=== PATIENT | male | born 1935 | race Caucasian/White ===

== ENCOUNTER 2017-06-25 09:11 | Emergency (ER) | payer MEDICARE ==
[~2017-06-25] VITALS: Ht 170.1 cm; Wt 68.0 kg
[2017-06-25 09:19] VITALS: BP 147/57
== END 2017-06-25 11:13 | disposition home or self-care (01) ==
LOC: ED 09:11
DX: S61.412A Laceration without foreign body of left hand, initial encounter (principal); S61.411A Laceration without foreign body of right hand, initial encounter; S00.81XA Abrasion of other part of head, initial encounter; S09.90XA Unspecified injury of head, initial encounter; R03.0 Elevated blood-pressure reading, without diagnosis of hypertension; Z95.1 Presence of aortocoronary bypass graft; W18.09XA Striking against other object with subsequent fall, initial encounter; Y93.89 Activity, other specified; Y92.511 Restaurant or cafe as the place of occurrence of the external cause; Y99.9 Unspecified external cause status

== ENCOUNTER 2018-01-01 12:50 | Inpatient (IN) | payer MEDICARE ==
[~2018-01-01] VITALS: Ht 170.1 cm; Wt 63.1 kg
--- NOTE | ~2018-01-01 | PR ---
[place], [place] PROGRESS NOTE NAME: SAVITA PATEL [facility] #: [id number] UNIT #: [id number] ROOM: [facility] DOCTOR: LELO CASTAÑEDA,MADHAVRODRIGUEZ BIRTHDATE: [birth year] DOS: 01/02/2018 REASON FOR VISIT: The patient with dyspnea, near syncope and coronary artery disease. SUBJECTIVE: The patient is feeling better. He wanted to go home. Denies any chest pain, shortness of breath. No palpitation. No dizziness. No PND or orthopnea. His is at bedside. REVIEW OF SYSTEMS: Review of the 8 systems negative except as mentioned above. RHYTHM STRIPS: The patient was in paced rhythm with AV sequential pacing on the monitor. PHYSICAL EXAMINATION: VITAL SIGNS: Blood pressure 100/51, pulse 73, respiratory rate was 16, weight 63.1 kilos. GENERAL: Alert, comfortable, in no acute distress. HEENT: Pupils round, equal. No jaundice. Tongue was moist and pharynx was clear. NECK: Supple. No distended neck veins. No carotid bruit. CHEST: Symmetrical, nontender. LUNGS: Clear to auscultation bilaterally. HEART: Regular rhythm. No S3. No palpable thrills. Grade 1/1-2/6 systolic murmur. ABDOMEN: Benign, nontender. Bowel sounds normal. EXTREMITIES: Showed no edema. Distal pulses palpable. SKIN: Warm and dry. No cyanosis. No clubbing. NEUROLOGIC: The patient is alert, oriented. No focal neurologic deficit. MEDICATIONS: Reviewed. ALLERGIES: Reviewed. IMPRESSION: 1. Near syncope, possibly due to low blood pressure. 2. Borderline low blood pressure, discontinue his spironolactone for now and monitor his blood pressures. 3. Coronary artery disease, status post bypass surgery. The patient was not on any beta blockers or ANTONIO inhibitors due to "low blood pressure and chronic kidney disease." 4. Positive ischemic cardiomyopathy, status post implantable cardioverter-defibrillator. The patient was on amiodarone. No beta blockers or ANTONIO or ARBs due to his low blood pressure and chronic kidney disease. 5. Peripheral vascular disease, status post recent abdominal aortic aneurysm stent graft repair in first week of December, stable. CT abdomen showed no graft leak. 6. Anemia. 7. Chronic kidney disease. [place], [place] PROGRESS NOTE NAME: SAVITA PATEL UNIT #: [id number] ROOM: [facility] DOCTOR: LELO CASTAÑEDA,CIARAN BIRTHDATE: [birth year] RECOMMENDATIONS: 1. He appears to be stable from a cardiac standpoint. 2. He would like to go home today. 3. His heart rates are stable and discontinue his spironolactone due to borderline low blood pressure. 4. Advised to follow with family doctor next week for follow up of his CBC and also followup by his mushroom farmer, Dr. Barrow in a couple of weeks. CIARAN LIND MD CM:PNTRANS 29 [id number] CIARAN LIND MD 01/02/181812 interface
--- NOTE | ~2018-01-01 | EKG ---
[place], [place] ELECTROCARDIOGRAM REPORT NAME: SAVITA PATEL UNIT #: [id number] ROOM: [facility] DOCTOR: LELO CASTAÑEDA,CIARAN BIRTHDATE: [birth year] DOS: 01/01/2018 TIME: 1326. IMPRESSION: 1. Ventricular pacing. 2. Possible atrial pacing. 3. Baseline artifacts. CIARAN LIND MD CM:EKGRPT:ELECTROCARDIOGRAM REPORT [id number] CIARAN LIND MD
[2018-01-01 12:57] VITALS: BP 151/56
[2018-01-01 13:00] VITALS: BP 151/56
[2018-01-01 14:09] LABS: BASO % 0.3 % (0.0-1.0); EOS % 1.1 % (1.0-4.0); HEMATOCRIT 33.4 % (42.0-52.0); HEMOGLOBIN 10.4 g/dl (14.0-18.0); LYMPH # 0.5 10*3/uL (1.3-4.4); LYMPH % 13.5 % (27.0-41.0); MEAN CELL VOLUME 89.3 fl (80.0-94.0); MEAN CORPUSCULAR HGB 27.8 pg (27.0-31.0); MEAN CORPUSCULAR HGB CONC 31.1 g/dl (33.0-37.0); MONO # 0.4 10*3/uL (0.1-1.0); MONO % 12.1 % (3.0-9.0); NEUT # 2.6 10*3/uL (2.3-7.9); NEUT % 72.7 % (47.0-73.0); PLATELET COUNT AUTOMATED 50 10*3/uL (130-400); RED BLOOD COUNT 3.74 10*6/uL (4.50-5.90); WHITE BLOOD COUNT 3.6 10*3/uL (4.8-10.8)
[2018-01-01 14:15] LABS: ACT PARTIAL THROMBO TIME 31.5 SECONDS (20.8-31.5); INTERNATIONAL NORM RATIO 2.2 (2.0-3.5)
[2018-01-01 14:23] LABS: ALBUMIN 2.9 gm/dl (3.1-4.5); CREATININE 1.78 mg/dL (0.70-1.30); POTASSIUM 4.2 mmol/L (3.5-5.1); TOTAL PROTEIN 7.6 gm/dL (6.4-8.2); TROPONIN I 0.015 ng/ml (<0.045)
[2018-01-01 15:15] VITALS: BP 132/56
[2018-01-01 16:07] VITALS: BP 135/54
[2018-01-01] MEDS ORDERED: OMEPRAZOLE40 MG PO (17:17)
[2018-01-01] MEDS ORDERED: LEVOTHYROXINE50 MCG PO (17:17)
[2018-01-01] MEDS ORDERED: AMIODARONE HYD200 MG PO (17:18)
[2018-01-01] MEDS ORDERED: WARFARIN SOD5 MG PO (17:18)
[2018-01-01] MEDS ORDERED: SPIRONOLACTONE25 MG PO (17:19)
[2018-01-01] MEDS ORDERED: DULCOLAX STOOL100 MG PO (17:20)
[2018-01-01] MEDS ORDERED: FUROSEMIDE40 MG PO (17:21)
[2018-01-01] MEDS ORDERED: ULTRAM50 MG PO (17:21)
[2018-01-01] MEDS ORDERED: LANOXIN0.125 MG PO ×2 (17:34→17:37)
[2018-01-01] MEDS ORDERED: IRON325 M3 PO (17:38)
[2018-01-01] MEDS ORDERED: COUMADIN5 M2 PO (17:41)
[2018-01-01 18:54] LABS: BILIRUBIN NEGATIVE (NEGATIVE); BLOOD 3+ (NEGATIVE); CLARITY CLOUDY (CLEAR); COLOR YELLOW (YELLOW); GLUCOSE NEGATIVE (NEGATIVE); KETONE NEGATIVE (NEGATIVE); LEUKO ESTERASE 2+ (NEGATIVE); NITRITE NEGATIVE (NEGATIVE); SPECIFIC GRAVITY 1.015 (1.005-1.030)
[2018-01-01 18:59] LABS: BACTERIA 4+; EPITHELIAL CELLS 0-2; MUCOUS TRACE; RBC TNTC rbc/hpf (0-2); WBC TNTC wbc/hpf (0-5)
[2018-01-01 20:00] VITALS: BP 118/40
[2018-01-02] VITALS: BP 114/35
[2018-01-02 04:00] VITALS: BP 120/51
[2018-01-02 05:11] LABS: HEMATOCRIT 27.7 % (42.0-52.0); HEMOGLOBIN 8.7 g/dl (14.0-18.0); MEAN CELL VOLUME 88.8 fl (80.0-94.0); MEAN CORPUSCULAR HGB 27.9 pg (27.0-31.0); MEAN CORPUSCULAR HGB CONC 31.4 g/dl (33.0-37.0); MEAN PLATELET VOLUME 12.7 fl (9.6-12.3); PLATELET COUNT AUTOMATED 43 10*3/uL (130-400); RED BLOOD COUNT 3.12 10*6/uL (4.50-5.90); RED CELL DISTRI WIDTH 16.2 % (0-14.5); WHITE BLOOD COUNT 2.9 10*3/uL (4.8-10.8)
[2018-01-02 05:35] LABS: ALBUMIN 2.3 gm/dl (3.1-4.5); CREATININE 1.49 mg/dL (0.70-1.30); FREE T4 1.44 ng/dl (0.76-1.46); POTASSIUM 4.2 mmol/L (3.5-5.1); TOTAL PROTEIN 6.1 gm/dL (6.4-8.2)
[2018-01-02 05:37] LABS: BASOPHILS 1 % (0-1); SCHISTOCYTES FEW; TOTAL CELLS COUNTED 100 #CELLS
[2018-01-02 05:38] LABS: PLATELET SUFFICIENCY LOW (NORMAL)
[2018-01-02 05:39] LABS: THYROID STIM HORMONE (HS) 3.17 uIU/ml (0.358-4.75)
[2018-01-02 06:08] LABS: ACT PARTIAL THROMBO TIME 32.6 SECONDS (20.8-31.5)
[2018-01-02 07:34] LABS: VITAMIN D, 25-HYDROXY 36.6 ng/mL (30-100)
[2018-01-02 08:00] VITALS: BP 108/60
[2018-01-02 12:00] VITALS: BP 100/51
== END 2018-01-02 13:48 | disposition home or self-care (01) | DRG 378 ==
LOC: ED 12:50 → EDHOLD 15:09 → 5E 15:37 → ICCU 16:16
PROVIDERS: Emergency Medicine; Internal Medicine
DX: K92.2 Gastrointestinal hemorrhage, unspecified (principal); D68.59 Other primary thrombophilia; D68.9 Coagulation defect, unspecified; I48.0 Paroxysmal atrial fibrillation; I95.9 Hypotension, unspecified; R06.09 Other forms of dyspnea; E83.41 Hypermagnesemia; D64.9 Anemia, unspecified; R55 Syncope and collapse; D72.810 Lymphocytopenia; R74.0 Nonspecific elevation of levels of transaminase and lactic acid dehydrogenase [LDH]; R74.8 Abnormal levels of other serum enzymes; K21.9 Gastro-esophageal reflux disease without esophagitis; E03.8 Other specified hypothyroidism; E06.3 Autoimmune thyroiditis; N40.0 Benign prostatic hyperplasia without lower urinary tract symptoms; M10.9 Gout, unspecified; W18.39XA Other fall on same level, initial encounter; I25.10 Atherosclerotic heart disease of native coronary artery without angina pectoris; N18.9 Chronic kidney disease, unspecified; I12.9 Hypertensive chronic kidney disease with stage 1 through stage 4 chronic kidney disease, or unspecified chronic kidney disease; I25.5 Ischemic cardiomyopathy; I73.9 Peripheral vascular disease, unspecified; Z95.1 Presence of aortocoronary bypass graft; Z95.810 Presence of automatic (implantable) cardiac defibrillator; Z86.79 Personal history of other diseases of the circulatory system; Z87.891 Personal history of nicotine dependence; Y99.8 Other external cause status; I25.2 Old myocardial infarction; Z79.01 Long term (current) use of anticoagulants; Z82.49 Family history of ischemic heart disease and other diseases of the circulatory system; Y93.89 Activity, other specified; Y92.89 Other specified places as the place of occurrence of the external cause

== ENCOUNTER 2018-02-20 12:20 | Inpatient (IN) | payer MEDICARE ==
[~2018-02-20] VITALS: Ht 163 cm; Wt 61.0 kg
[2018-02-20] VITALS (7 sets, daily range): BP systolic 103–129; BP diastolic 44–71
[~2018-02-20 12:20] MED LIST: AMIODARONE HYD200 MG PO; COUMADIN5 M2 PO; DULCOLAX STOOL100 MG PO; FUROSEMIDE40 MG PO; IRON325 M3 PO; LANOXIN0.125 MG PO; LEVOTHYROXINE50 MCG PO; OMEPRAZOLE40 MG PO; SPIRONOLACTONE25 MG PO; ULTRAM50 MG PO; WARFARIN SOD5 MG PO
[2018-02-20 13:19] LABS: HEMATOCRIT 33.1 % (42.0-52.0); HEMOGLOBIN 10.5 g/dl (14.0-18.0); MEAN CELL VOLUME 93.8 fl (80.0-94.0); MEAN CORPUSCULAR HGB 29.7 pg (27.0-31.0); MEAN CORPUSCULAR HGB CONC 31.7 g/dl (33.0-37.0); MEAN PLATELET VOLUME 10.9 fl (9.6-12.3); PLATELET COUNT AUTOMATED 46 10*3/uL (130-400); RED BLOOD COUNT 3.53 10*6/uL (4.50-5.90); RED CELL DISTRI WIDTH 19.9 % (0-14.5); WHITE BLOOD COUNT 4.1 10*3/uL (4.8-10.8)
[2018-02-20 13:26] LABS: ACT PARTIAL THROMBO TIME 32.7 SECONDS (20.8-31.5); INTERNATIONAL NORM RATIO 2.8 (2.0-3.5)
[2018-02-20 13:33] LABS: ALBUMIN 2.5 gm/dl (3.1-4.5); CREATININE 1.77 mg/dL (0.70-1.30); POTASSIUM 3.9 mmol/L (3.5-5.1); TOTAL PROTEIN 6.4 gm/dL (6.4-8.2)
[2018-02-20 13:35] LABS: OVALOCYTES FEW; PLATELET SUFFICIENCY LOW (NORMAL); TOTAL CELLS COUNTED 100 #CELLS
[2018-02-20 13:40] LABS: TROPONIN I 0.051 ng/ml (<0.045)
[2018-02-20 13:53] LABS: DIGOXIN 0.46 ng/ml (0.8-2.0)
[2018-02-20 20:01] LABS: BILIRUBIN NEGATIVE (NEGATIVE); BLOOD 3+ (NEGATIVE); CLARITY SL CLOUDY (CLEAR); COLOR YELLOW (YELLOW); GLUCOSE NEGATIVE (NEGATIVE); KETONE NEGATIVE (NEGATIVE); LEUKO ESTERASE 1+ (NEGATIVE); NITRITE NEGATIVE (NEGATIVE); PH 5.5 (5.0-9.0); SPECIFIC GRAVITY 1.015 (1.005-1.030)
[2018-02-20 20:07] LABS: RBC TNTC rbc/hpf (0-2)
[2018-02-21] VITALS: BP 122/44
[2018-02-21 06:20] LABS: HEMATOCRIT 28.5 % (42.0-52.0); HEMOGLOBIN 9.2 g/dl (14.0-18.0); MEAN CELL VOLUME 91.9 fl (80.0-94.0); MEAN CORPUSCULAR HGB 29.7 pg (27.0-31.0); MEAN CORPUSCULAR HGB CONC 32.3 g/dl (33.0-37.0); PLATELET COUNT AUTOMATED 38 10*3/uL (130-400); RED CELL DISTRI WIDTH 19.6 % (0-14.5); WHITE BLOOD COUNT 3.7 10*3/uL (4.8-10.8)
[2018-02-21 06:30] LABS: ALBUMIN 2.4 gm/dl (3.1-4.5); CREATININE 1.43 mg/dL (0.70-1.30); PHOSPHOROUS 2.3 mg/dL (2.5-4.9); POTASSIUM 3.9 mmol/L (3.5-5.1)
[2018-02-21 06:33] LABS: TOTAL PROTEIN 5.6 gm/dL (6.4-8.2)
[2018-02-21 06:45] LABS: OVALOCYTES FEW; PLATELET SUFFICIENCY LOW (NORMAL); POLYCHROMASIA SLIGHT; TOTAL CELLS COUNTED 100 #CELLS
[2018-02-21 07:01] LABS: INTERNATIONAL NORM RATIO 2.8 (2.0-3.5)
[2018-02-21 08:00] VITALS: BP 125/58
[2018-02-21 12:00] VITALS: BP 139/50
[2018-02-21] MEDS ORDERED: VITAMIN D31000 UNIT PO (12:02)
[2018-02-21] MEDS ORDERED: PROAIR HFA8.5 GM INH (12:03)
[2018-02-21] MEDS ORDERED: VITAMIN C1000 M5 PO (12:06)
[2018-02-21 16:01] VITALS: BP 101/31
[2018-02-21 20:00] VITALS: BP 102/40
[2018-02-21 21:30] VITALS: BP 126/56
[2018-02-22] VITALS: BP 118/42
[2018-02-22 06:55] LABS: HEMATOCRIT 29.6 % (42.0-52.0); HEMOGLOBIN 9.5 g/dl (14.0-18.0); MEAN CELL VOLUME 93.7 fl (80.0-94.0); MEAN CORPUSCULAR HGB 30.1 pg (27.0-31.0); MEAN CORPUSCULAR HGB CONC 32.1 g/dl (33.0-37.0); PLATELET COUNT AUTOMATED 42 10*3/uL (130-400); RED BLOOD COUNT 3.16 10*6/uL (4.50-5.90); RED CELL DISTRI WIDTH 19.4 % (0-14.5); WHITE BLOOD COUNT 3.8 10*3/uL (4.8-10.8)
[2018-02-22 07:23] LABS: ALBUMIN 2.4 gm/dl (3.1-4.5); BUN 32 mg/dl (7-24); CHLORIDE 106 mmol/L (98-107); CREATININE 1.28 mg/dL (0.70-1.30); POTASSIUM 3.8 mmol/L (3.5-5.1); SGOT/AST 63 IU/L (3-35); SGPT/ALT 58 U/L (12-78); SODIUM 140 mmol/L (136-145); TOTAL PROTEIN 5.8 gm/dL (6.4-8.2)
[2018-02-22 07:24] LABS: ALKALINE PHOSPHATASE 102 U/L (45-117); PHOSPHOROUS 3.2 mg/dL (2.5-4.9)
[2018-02-22 07:29] LABS: BURR CELLS FEW; PLATELET SUFFICIENCY LOW (NORMAL); ROULEAUX SLIGHT; SCHISTOCYTES FEW; TOTAL CELLS COUNTED 100 #CELLS
[2018-02-22 07:31] LABS: INTERNATIONAL NORM RATIO 3.2 (2.0-3.5)
[2018-02-22 08:00] VITALS: BP 117/48
[2018-02-22 12:00] VITALS: BP 115/47
[2018-02-22] MEDS ORDERED: LASIX20 MG PO (13:22)
== END 2018-02-22 14:04 | disposition home or self-care (01) | DRG 438 ==
LOC: ED 12:20 → EDHOLD 15:27 → 4E 15:27
PROVIDERS: Internal Medicine Nephrology; Nurse Practitioner Family
DX: K85.90 Acute pancreatitis without necrosis or infection, unspecified (principal); E43 Unspecified severe protein-calorie malnutrition; N17.0 Acute kidney failure with tubular necrosis; D68.59 Other primary thrombophilia; I48.0 Paroxysmal atrial fibrillation; D69.6 Thrombocytopenia, unspecified; E87.8 Other disorders of electrolyte and fluid balance, not elsewhere classified; R73.9 Hyperglycemia, unspecified; E80.6 Other disorders of bilirubin metabolism; N40.0 Benign prostatic hyperplasia without lower urinary tract symptoms; M10.9 Gout, unspecified; I25.10 Atherosclerotic heart disease of native coronary artery without angina pectoris; I10 Essential (primary) hypertension; K21.9 Gastro-esophageal reflux disease without esophagitis; E03.9 Hypothyroidism, unspecified; Z79.02 Long term (current) use of antithrombotics/antiplatelets; Z95.1 Presence of aortocoronary bypass graft; Z95.810 Presence of automatic (implantable) cardiac defibrillator; Z82.49 Family history of ischemic heart disease and other diseases of the circulatory system; Z90.49 Acquired absence of other specified parts of digestive tract; Z95.5 Presence of coronary angioplasty implant and graft; Z68.23 Body mass index [BMI] 23.0-23.9, adult